=== PATIENT | female | born 1975 | race Caucasian/White ===

== ENCOUNTER 2018-03-06 12:12 | Outpatient (CLI) | payer BC, SELFPAY ==
[2018-03-06 13:23] LABS: HCG Quant, Pregnancy < 1 mIU/mL (1-3)
== END 2018-03-06 12:32 ==
PROVIDERS: Visit Provider Nurse Practitioner Women's Health
DX: Z32.01 Encounter for pregnancy test, result positive (principal)
CPT/HCPCS: 84702

== ENCOUNTER 2018-05-09 16:31 | Outpatient (REF) | payer BC, SELFPAY ==
--- NOTE | 2018-05-09 15:15 | ENDOMET_PTH ---
PATIENT: PAKO MEZA LOC: [facility] U#:[id number] AGE/SX: 42/F ROOM: RE05/09/[address]: Dannielle Pandey NP : 1975 BED: DIS: 05/09/2018 SPEC #: [id number] RECD: 05/09/18 16:58 STATUS: FRANCISCA BUSCH #: [id number] MELQUIADES: 05/09/18 15:[address]: Dannielle Pandey NP DEPT: Surgical Specimen RECD BY: Valerie Jeter ENTERED: 05/09/18 16:58 SP TYPE: Endomet OT DR: No Local Tissues: 1 - ENDOMETRIUM BX/CURRETTE Procedures: GROSS AND MICRO LEVEL 4 Comments: [id number]
== END 2018-05-09 16:51 ==
LOC: LBN 16:31
PROVIDERS: Visit Provider Nurse Practitioner Women's Health
DX: N85.8 Other specified noninflammatory disorders of uterus (principal); N93.8 Other specified abnormal uterine and vaginal bleeding
CPT/HCPCS: 88305

== ENCOUNTER 2018-05-12 16:36 | Outpatient (CLI) | payer BC, SELFPAY ==
--- NOTE | 2018-05-12 13:00 | DI.US_ITS ---
SYMPTOM/DIAGNOSIS: AUB N93.9 PELVIC ULTRASOUND: Transabdominal and transvaginal examination was performed. The uterus is retroverted and measures 7.4 cm long x 4.2 cm AP x 5.7 cm transverse. The endometrial stripe is at the upper limits of normal at 1.2 cm. Cervical Nabothian cysts are present. The right ovary measures 3.4 x 3 x 2.7 cm. There are follicular cysts seen, There is a hemorrhagic or corpus luteal cyst seen on the right ovary measuring 1.3 x 0.9 x 0.8 cm. There is a 2.6 x 1.5 x 1.5 cm simple cyst on the right ovary. The left ovary measures 2.8 x 1.4 x 1.4 cm. Small follicular cysts are present. There is a 2.3 x 1.3 x 1.9 cm paraovarian simple cyst present. There is normal blood flow to the ovaries. No evidence of torsion. There is a small amount of free fluid adjacent to the right ovary likely physiologic. The kidneys are unremarkable. IMPRESSION: Essentially unremarkable pelvic ultrasound.
== END 2018-05-12 16:56 ==
PROVIDERS: Visit Provider Nurse Practitioner Women's Health
DX: N93.8 Other specified abnormal uterine and vaginal bleeding (principal); N85.4 Malposition of uterus; N83.291 Other ovarian cyst, right side; N83.292 Other ovarian cyst, left side
CPT/HCPCS: 76830; 76856

== ENCOUNTER 2019-12-21 07:40 | Outpatient (CLI) | payer BC, SELFPAY ==
[2019-12-23 19:16] LABS: Patient Race White; SARS-CoV-2 RNA Undetected (Undetected); SARS-CoV-2 Specimen Source Nasal
== END 2019-12-21 08:00 ==
PROVIDERS: Visit Provider Family Medicine
DX: Z20.828 Contact with and (suspected) exposure to other viral communicable diseases (principal)
CPT/HCPCS: U0003